=== PATIENT | male | born 1985 | race Caucasian/White ===

== ENCOUNTER 2024-08-04 11:35 | Emergency (ER) | payer BC, SELFPAY ==
[2024-08-04 11:35] VITALS: BMI 33.2
[2024-08-04 11:49] VITALS: BP 155/98
[2024-08-04 12:26] VITALS: BP 144/116
[2024-08-04 12:58] LABS: % Basophils 1.5 % (0-2); % Eosinophils 2.9 % (0-6); % Immature Granulocytes 0.3 % (0-0.5); % Lymphocytes 32.7 % (20.5-51.1); % Monocytes 7.6 % (1.7-9.3); Absolute Basophils 0.1 10^3/uL (0-0.2); Absolute Eosinophils 0.2 10^3/uL (0-0.7); Absolute Lymphocytes 1.9 10^3/uL (1.2-3.4); Absolute Monocytes 0.5 10^3/uL (0.1-0.6); Absolute Neutrophils 3.3 10^3/uL (1.4-6.5); Hematocrit 45.9 % (39.0-52.0); Hemoglobin 15.8 g/dL (13.0-18.0); Mean Corp Hgb Conc. 34.4 g/dL (33.0-37.0); Mean Corpuscular Hgb 30.3 pg (27.0-31.0); Mean Corpuscular Volume 87.9 fL (80.0-94.0); Mean Platelet Volume 10.5 fL (7.4-10.4); Nucleated Red Blood Cells % 0 % (-); Platelet Count 282 10^3/uL (130-400); Red Blood Cell Count 5.22 10^6/uL (4.70-6.10); Red Cell Dist. Width 13.3 % (11.5-14.5); White Blood Cell Count 5.9 10^3/uL (4.8-10.8)
[2024-08-04 12:59] LABS: Urine Albumin 2+ (Neg - Trace); Urine Bilirubin Negative (Negative); Urine Character Slightly Cloudy (Clear); Urine Color Yellow; Urine Glucose Negative (Negative); Urine Ketone Negative (Negative); Urine Leukocyte 1+ (Negative); Urine Nitrite Negative (Negative); Urine Occult Blood 4+ (Negative); Urine Urobilinogen Negative (Neg - 1+)
[2024-08-04] MEDS: TORADOL 30 MG IV (13:03)
[2024-08-04] MEDS: NSS 1000 IV (13:03)
[2024-08-04 13:15] LABS: ALT (SGPT) 30 U/L (0-50); AST (SGOT) 31 U/L (17-59); Albumin 4.9 g/dl (3.5-5.0); Alkaline Phosphatase 62 U/L (38-126); Blood Urea Nitrogen 14 mg/dl (9-20); Calcium 9.6 mg/dl (8.4-10.2); Carbon Dioxide 25 mmol/L (22-30); Chloride 108 mmol/L (98-107); Estimated Creatinine Clearance 115 ml/min; Glucose 96 mg/dl (70-99); Potassium 4.8 mmol/L (3.5-5.1); Sodium 140 mmol/L (135-145); Total Bilirubin 0.5 mg/dl (0.2-1.3); eGFR > 60.00
[2024-08-04 13:21] LABS: Urine Squamous Cell 0-2 /LPF (Few)
[2024-08-04 13:31] LABS: Urine Red Blood Cell 90-100 /HPF (0-2)
[2024-08-04 13:35] LABS: Urine Bacteria Few (Negative)
--- NOTE | 2024-08-04 15:13 | ED.GENMED ---
History of Present Illness
General
Chief Complaint: Flank Pain
Source: patient
Time Seen by Provider: 08/04/24 12:20
History of Present Illness
History of Present Illness:
38-year-old male presenting to the emergency department for evaluation of left-sided flank pain that began earlier today, acute in nature, sharp, radiating to the left lower groin area accompanied with urinary frequency/urgency, mild dysuria and
hematuria, patient past sediment from a kidney stone or full kidney stone but due to continued pain and the hematuria decided to come to the ER for further evaluation. He notes a history of kidney stones in the past but states he never had the
accompanying urinary symptoms. Denies any fevers, chills, rigors, current nausea or vomiting, testicular pain or edema or any other concerns. Patient did not take anything for the pain prior to arrival.
Past History
Past History
ED Past Medical History: Other (Kidney stones)
ED Past Surgical History: None
Social History
Tobacco: Smoker
Alcohol: Occasional
Drug: None
Personal: Single
Living: with family
Review of Systems
Review of Systems
All Other Systems: ROS reviewed and negative except as documented in HPI and ROS
Phy Exam
Physical Exam
Physical Exam:
GENERAL: Alert , in no apparent distress
EYE: clear conjunctiva b/l
HEAD: NCAT
ENT: mmm.
CARDIAC: Regular rate and rhythm .
LUNGS: Clear breath sounds bilaterally, no acute respiratory distress, no wheezes/rales/rhonchi
ABDOMEN: Soft, without focal tenderness, no r/g, left CVA tenderness
NEUROLOGICAL: Alert and oriented
SKIN: Warm and dry, skin intact.
MUSCULOSKELETAL: well perfused.
PSYCH: Normal and appropriate interaction.
Scores
Heart Failure Risk
Heart Failure Risk Score: Not Applicable
Heart Score for Chest Pain Patients
STEMI patient?: Not applicable
Withdrawal Assessment of Alcohol
Withdrawal Assessment Completed?: Not applicable
Course
Orders/Labs/Results
Orders:
Orders
08/04/24 12:22
CT Abd/pel Without Iv Or Oral Urgent
Comment:
Reason For Exam: right flank pain, recently passed stone
08/04/24 12:36
Complete Blood Count/With Diff Urgent
Comprehensive Metabolic Panel Urgent
Urinalysis Reflex To Culture Urgent
Date Specimen was Collected: 08/04/24
Time Specimen was Collected: 12:30
Urine Microscopic Reflex Cult Urgent
Urine Culture Urgent
[facility] Source: U
Specimen Description:
Date Specimen was Collected: 08/04/24
Time Specimen was Collected: 12:30
08/04/24 12:51
0.9% Sodium Chloride 1000 ml [Nss] 1,000 ml IV BOLUS
Ketorolac [Toradol] 30 mg IV NOW STA
Abnormal Lab Results
08/04/24
12:36
MPV 10.5 H fL
(7.4-10.4)
Chloride 108 H mmol/L
(98-107)
Ur Occult Blood Reflex 4+ A
(Negative)
Leukocyte Esterase Rfl 1+ A
(Negative)
Urine RBC 90-100 A /HPF
(0-2)
Urine Bacteria (Reflex) Few A
(Negative)
Urine Albumin (Reflex) 2+ A
(Neg - Trace)
08/04/24 12:36
08/04/24 12:36
Vital Signs
Initial and Last Documented VS:
Initial Vital Signs
Temp Pulse Resp BP Pulse Ox
98.2 F 84 16 155/98 98
08/04/24 11:49 08/04/24 11:49 08/04/24 11:49 08/04/24 11:49 08/04/24 11:49
Last Documented Vital Signs
Temp Pulse Resp BP Pulse Ox
97.7 F 76 16 127/94 96
08/04/24 16:43 08/04/24 16:43 08/04/24 16:43 08/04/24 15:28 08/04/24 16:43
MDM/Problems Addressed
Differential Diagnosis Includes:
- Renal/ureteral colic
- Cystitis
- Pyelonephritis
-Musculoskeletal etiology
- Less concern for any vascular etiology
-STI
MDM/Problems Addressed:
38-year-old male presenting to the ER for evaluation of left-sided flank pain accompanied with urinary symptoms and hematuria which started this morning, believes he passed a kidney stone prior to arrival but still with pain and urinary symptoms.
Will treat pain here with Toradol. Labs and urinalysis ordered. CT of the abdomen and pelvis ordered. Disposition pending
*Radiology
Radiology exam reviewed: radiology read reviewed
*Pulse Oximetry
SaO2: 99
Patient hypoxic: no
*Critical Care Note
Total Time (30-74mins, 75-104mins- exclusive of procedures): Not Applicable
Comment
Comment:
Pain improved with medications. Pending CT scan
Patient Management
Escalation/DeEscalation of care consider admission/obs:
CT scan shows 2mm calculus at the left UVJ and suspected small bladder stone. Patient's pain continues to be controlled following Toradol here. He is otherwise well-appearing, no fevers, no leukocytosis and urinalysis is without signs of
infection. Will send home with Flomax and additional Percocet for pain control as needed. Information for urology provided. Patient aware of return precautions to the ER.
ED Attending Note
-
Portions of this chart may have been created with voice recognition software.� Occasional wrong word or��sound alike� substitutions may have occurred due to the inherent limitations of voice recognition software.
Discharge Plan
Departure
Patient Disposition: Home (Routine Discharge)
Date of Disposition: 08/04/24
Time of Disposition: 16:22
Patient with high blood pressure during this ER visit?: Yes
Discharge Problem:
Ureterolithiasis, Ureteral colic
Instructions: Renal Colic (DC)
Prescriptions:
New
tamsulosin [Flomax] 0.4 mg capsule
0.4 mg PO DAILY Qty: 10 0RF
oxycodone-acetaminophen [Percocet] 5-325 mg tablet
1 tab PO Q6HPRN PRN (Reason: pain) Qty: 8 0RF
Referrals:
Yfn Siu MD [Active, Urology]
NONE,* [Family Provider, Internal Medicine]
Interventions
Interventions:
*Risk Screen - Suicide Last Done: 08/04/24 14:43
*General Assessment Last Done: 08/04/24 11:49
*Neglect/Abuse Screening Last Done: 08/04/24 14:42
*ED- Fall Risk Assessment Last Done: 08/04/24 14:42
*ED COVID-19 Vaccine History Last Done: 08/04/24 11:49
*Nursing Disposition Last Done: 08/04/24 16:43
GR-Fvbxhy-Tirymgrwwa Assessment Last Done: 08/04/24 14:08
ED-Male Genitourinary Assessment Last Done: 08/04/24 14:08
Discharge Date and Time
Discharge Date/Time: 08/04/24 16:44
Print Language: BULGARIAN
[2024-08-04 15:28] VITALS: BP 127/94
== END 2024-08-04 16:44 | disposition home or self-care (01) ==
LOC: EMR 11:35
PROVIDERS: Physician Assistant Medical; EMERGENCY PHYSICIAN Student in an Organized Health Care Education/Training Program
DX: N20.1 Calculus of ureter (principal); N23 Unspecified renal colic; Z87.442 Personal history of urinary calculi; F17.200 Nicotine dependence, unspecified, uncomplicated; R03.0 Elevated blood-pressure reading, without diagnosis of hypertension
CPT/HCPCS: 99285; 96374; 74176; 80053; 81003; 81015; 85025; 87086